=== PATIENT | female | born 1960 | race Asian ===

== ENCOUNTER 2016-10-12 11:46 | Inpatient (IN) | payer BC ==
[2016-10-12] MEDS ORDERED: KETOROLAC TROMETHAMINE INJ 30 MG/ML VIAL ONE (12:51)
[2016-10-12] MEDS ORDERED: BUPIVACAINE MPF 0.5% W/EPI INJ 30 ML VIAL ONE ×2 (12:51→14:04)
[2016-10-12] MEDS ORDERED: BACITRACIN 50000 UNITS/VIAL ONE (12:52)
[2016-10-12] MEDS ORDERED: MIDAZOLAM HCL 2 MG/2ML VIAL ONE (13:20)
[2016-10-12] MEDS ORDERED: FENTANYL PF 100MCG/2ML AMPUL ONE ×2 (13:20→16:13)
[2016-10-12] MEDS ORDERED: ROCURONIUM BROMIDE 50 MG/5 ML ONE (14:03)
[2016-10-12] MEDS ORDERED: BISACODYL SUPP (10 MG) 10 MG/SUPP.RECT SUPP.RECT RC PRN (17:30)
[2016-10-12] MEDS ORDERED: HYDROCODONE/APAP 10/325MG 1 EA TABLET PO PRN (17:30)
[2016-10-12] MEDS ORDERED: SENNOSIDES 8.6 MG TABLET PO PRN (17:30)
[2016-10-12] MEDS ORDERED: ONDANSETRON HCL/PF 4 MG/2 ML VIAL IVP PRN (17:30)
[2016-10-12] MEDS ORDERED: HYDROCODONE/APAP 5/325MG 1 EACH TABLET PO PRN (17:30)
[2016-10-12] MEDS ORDERED: diphenhydrAMINE HCL 25 MG CAPSULE PO PRN (17:30)
[2016-10-12] MEDS ORDERED: oxyCODONE IR immediate release 5 MG CAPSULE PO PRN (17:30)
[2016-10-12] MEDS ORDERED: ACETAMINOPHEN 325 MG TABLET PO PRN (17:30)
[2016-10-12] MEDS ORDERED: MAG HYDROX/AL HYDROX/SIMETH 30 ML UDC PO PRN (17:30)
[2016-10-12] MEDS ORDERED: ZOLPIDEM TARTRATE 5 MG TABLET PO PRN (17:30)
[2016-10-12] MEDS ORDERED: DOCUSATE SODIUM 250 MG CAPSULE PO PRN (17:30)
[2016-10-12] MEDS ORDERED: IV SET PRIMARY PUMP SET 1 EA INFUS.SET MC ONE (17:42)
[2016-10-12] MEDS ORDERED: ANESTHESIA TRAY IN PYXIS 1 EA TRAY MC ONE (17:48)
[2016-10-12] MEDS: HYDROMORPHONE 1 MG/1 ML DISP.SYRIN IV PRN ×2 (17:53→21:12)
[2016-10-12] MEDS: IV D5/0.45 NACL 1,000 ML IV PRN (17:53)
[2016-10-12] MEDS ORDERED: DEXTROSE 50%-WATER 50 ML DISP.SYRIN IV PRN (18:00)
[2016-10-12] MEDS ORDERED: MONT10TA22 PO (18:33)
[2016-10-12] MEDS ORDERED: METF10002 PO (18:33)
[2016-10-12] MEDS ORDERED: SITA100T PO (18:33)
[2016-10-12] MEDS ORDERED: HYDR-3024 PO (18:33)
[2016-10-12] MEDS ORDERED: ERGO50003 PO (18:33)
[2016-10-12] MEDS ORDERED: OXYC-164 PO (18:33)
[2016-10-12] MEDS ORDERED: ATOR40TA PO (18:33)
[2016-10-12] MEDS ORDERED: FLUT1DIS3 INH (18:34)
[2016-10-12] MEDS ORDERED: SECONDARY IV SET 1 EA INFUS.SET MC ONE (21:00)
[2016-10-12] MEDS: MONTELUKAST SODIUM (10MG) 10 MG TABLET PO SCH (21:07)
[2016-10-12] MEDS: ANCEF 1 GM/50 ML D5W IV SCH ×2 (21:07)
[2016-10-12] MEDS: BLOOD SUGAR DIAGNOSTIC 1 EACH STRIP VI SCH (21:07)
[2016-10-12] MEDS: ATORVASTATIN 40 MG TABLET PO SCH (21:07)
[2016-10-12] MEDS: PANTOPRAZOLE 40 MG TABLET.DR PO SCH (21:07)
[2016-10-12] MEDS: *INSULIN REGULAR(HUMULIN R)HUM 100 UNIT/ML VIAL SQ PRN (21:14)
[2016-10-12] MEDS ORDERED: BLOOD SUGAR DIAGNOSTIC 1 EACH STRIP IN SCH (22:00)
[2016-10-13] MEDS: HYDROMORPHONE 1 MG/1 ML DISP.SYRIN IV PRN ×5 (00:56→22:06)
[2016-10-13] MEDS: IV D5/0.45 NACL 1,000 ML IV PRN ×2 (03:28→13:29)
[2016-10-13] MEDS: ANCEF 1 GM/50 ML D5W IV SCH ×2 (06:03)
[2016-10-13] MEDS: BLOOD SUGAR DIAGNOSTIC 1 EACH STRIP VI SCH ×4 (06:30→22:13)
[2016-10-13] MEDS: INSULIN REGULAR, HUMAN 100 UNIT/ML 3 ML VIAL SQ PRN ×3 (06:32→17:42)
[2016-10-13] MEDS: DOCUSATE SODIUM 100 MG CAPSULE PO SCH ×2 (08:00→17:38)
[2016-10-13] MEDS: ASPIRIN 325 MG TABLET PO SCH (08:08)
[2016-10-13] MEDS: oxyCODONE IR immediate release 5 MG CAPSULE PO PRN ×6 (08:08→23:22)
[2016-10-13] MEDS: FLUTICASONE/SALMETEROL DISKUS IH SCH ×2 (08:08→17:32)
[2016-10-13] MEDS ORDERED: IV SET PRIMARY PUMP SET 1 EA INFUS.SET MC ONE (15:21)
[2016-10-13] MEDS ORDERED: Medication Not On Formulary EA (Oxycodone Hcl/Acetaminophen (Oxycodone-Apap 10-325 Mg Ta PO PRN (20:00)
[2016-10-13] MEDS: SITAGLIPTIN PHOSPHATE 50 MG TABLET PO SCH (20:26)
[2016-10-13] MEDS: *INSULIN REGULAR(HUMULIN R)HUM 100 UNIT/ML VIAL SQ PRN (22:07)
[2016-10-13] MEDS: PANTOPRAZOLE 40 MG TABLET.DR PO SCH (22:13)
[2016-10-13] MEDS: MONTELUKAST SODIUM (10MG) 10 MG TABLET PO SCH (22:13)
[2016-10-13] MEDS: hydrOXYzine 10 MG TABLET PO SCH (22:13)
[2016-10-13] MEDS: ATORVASTATIN 40 MG TABLET PO SCH (22:13)
[2016-10-14] MEDS: HYDROMORPHONE 1 MG/1 ML DISP.SYRIN IV PRN ×5 (01:01→20:19)
[2016-10-14] MEDS: oxyCODONE IR immediate release 5 MG CAPSULE PO PRN ×6 (02:44→21:54)
[2016-10-14] MEDS: INSULIN REGULAR, HUMAN 100 UNIT/ML 3 ML VIAL SQ PRN ×2 (06:39→11:44)
[2016-10-14] MEDS: BLOOD SUGAR DIAGNOSTIC 1 EACH STRIP VI SCH ×4 (06:59→21:59)
[2016-10-14] MEDS: FLUTICASONE/SALMETEROL DISKUS IH SCH ×2 (08:23→16:38)
[2016-10-14] MEDS: DOCUSATE SODIUM 100 MG CAPSULE PO SCH ×2 (08:23→16:38)
[2016-10-14] MEDS: METFORMIN 500 MG TABLET PO SCH ×2 (08:23→16:38)
[2016-10-14] MEDS: SITAGLIPTIN PHOSPHATE 50 MG TABLET PO SCH (08:24)
[2016-10-14] MEDS: ASPIRIN 325 MG TABLET PO SCH (08:24)
[2016-10-14] MEDS: MONTELUKAST SODIUM (10MG) 10 MG TABLET PO SCH (21:54)
[2016-10-14] MEDS: ATORVASTATIN 40 MG TABLET PO SCH (21:54)
[2016-10-14] MEDS: PANTOPRAZOLE 40 MG TABLET.DR PO SCH (21:54)
[2016-10-14] MEDS: hydrOXYzine 10 MG TABLET PO SCH (21:55)
[2016-10-14] MEDS: *INSULIN REGULAR(HUMULIN R)HUM 100 UNIT/ML VIAL SQ PRN (21:59)
[2016-10-15] MEDS: BLOOD SUGAR DIAGNOSTIC 1 EACH STRIP VI SCH ×2 (06:35→12:20)
[2016-10-15] MEDS: oxyCODONE IR immediate release 5 MG CAPSULE PO PRN ×3 (06:39→13:17)
[2016-10-15] MEDS: ASPIRIN 325 MG TABLET PO SCH (08:49)
[2016-10-15] MEDS: SITAGLIPTIN PHOSPHATE 50 MG TABLET PO SCH (08:49)
[2016-10-15] MEDS: FLUTICASONE/SALMETEROL DISKUS IH SCH (08:49)
[2016-10-15] MEDS: DOCUSATE SODIUM 100 MG CAPSULE PO SCH (08:50)
[2016-10-15] MEDS: METFORMIN 500 MG TABLET PO SCH (08:50)
[2016-10-15] MEDS ORDERED: MAGNESIUM CITRATE 296 ML BOTTLE PO ONE (10:30)
[2016-10-18] MEDS ORDERED: ERGOCALCIFEROL (VITAMIN D 2) 50,000 UNIT CAPSULE PO SCH (09:00)
== END 2016-10-15 14:30 | disposition home or self-care (01) | DRG 470 ==
DX: M17.12 Unilateral primary osteoarthritis, left knee (principal); E11.22 Type 2 diabetes mellitus with diabetic chronic kidney disease; E78.5 Hyperlipidemia, unspecified; I12.9 Hypertensive chronic kidney disease with stage 1 through stage 4 chronic kidney disease, or unspecified chronic kidney disease; N18.9 Chronic kidney disease, unspecified; J45.909 Unspecified asthma, uncomplicated; E66.9 Obesity, unspecified; K64.9 Unspecified hemorrhoids; M10.00 Idiopathic gout, unspecified site; Z90.710 Acquired absence of both cervix and uterus